=== PATIENT | female | born 2000 | race Caucasian/White ===

== ENCOUNTER 2021-08-28 10:16 | Outpatient (CLI) | payer OTHER, SELFPAY ==
--- NOTE | ~2021-08-28 | US_ITS ---
EXAMINATION: US OB <=14 wk fetus w TV DATE: 08/28/2021 11:06 INDICATION: with inconclusive viability TECHNIQUE: Real-time pelvic ultrasound utilizing both a transvaginal and transabdominal probe was pe rformed. The interpreting radiologist was not present for the study. COMPARISON: None. FINDINGS: The uterus measures 11.0 x 8.5 x 5.7 cm. There is an intrauterine gestational sac. A yolk sac and fe mary pole are identified. The crown rump length measures 3.3 cm, which correlates with an estimated ge stational age of 10 weeks and 1 days. heart motion is identified measuring 171 beats per minute (bpm) by M-mode Doppler. The right ovary measures 3.7 x 2.7 x 2.3 cm. The left ovary measures 3.3 x 2.3 x 2.1 cm. There are mu ltiple subcentimeter anechoic follicles at both the left and right ovaries with larger 1.9 x 1.3 cm t hick-walled centrally hypoechoic likely corpus luteum cyst in the left ovary. Vascular flow is identi fied in both ovaries on color Doppler. There is no free fluid in the pelvis. IMPRESSION: 1. Single living fetus with heart rate of 173 bpm. 2. Gestational age by ultrasound of 10 weeks 1 day(s) +/- 6 day(s) with ultrasound estimated date of delivery ([facility]) of 03/25/2022. Reviewed, dictated and finalized at location A. [facility] CUTTER IMPRESSION: 1. Single living fetus with heart rate of 173 bpm. 2. Gestational age by ultrasound of 10 weeks 1 day(s) +/- 6 day(s) with ultras ound estimated date of delivery ([facility]) of 03/25/2022.
== END 2021-08-28 10:17 | disposition home or self-care (01) ==
LOC: ANHIMG 10:20
PROVIDERS: PCP Family Medicine; Visit Provider Student in an Organized Health Care Education/Training Program
DX: O36.80X0 Pregnancy with inconclusive fetal viability, not applicable or unspecified (principal); Z3A.10 10 weeks gestation of pregnancy
CPT/HCPCS: 76801; 76817

== ENCOUNTER 2021-09-26 11:08 | Outpatient (CLI) | payer OTHER, SELFPAY ==
[2021-09-26 11:46] LABS: Basophils Percent Auto 0.3 % (0.2-1.2); Eosinophils Absolute Auto 0.1 K/mm3 (0-0.3); Eosinophils Percent Auto 0.6 % (0-4.4); Hematocrit 40.6 % (37.0-47.0); Hemoglobin 13.5 g/dL (12.0-15.0); Immature Granulocyte Absolute 0.04 K/mm3 (0.00-0.031); Immature Granulocyte Percent A 0.4 % (0-0.5); Lymphocytes Absolute Auto 1.68 K/mm3 (0.9-3.2); Lymphocytes Percent Auto 17.9 % (18.3-44.2); Mean Corpuscular HGB Conc 33.3 g/dl (32-36); Mean Corpuscular Hemoglobin 29.2 pg (26-34); Mean Corpuscular Volume 87.7 fl (80-100); Mean Platelet Volume 12.2 fl (7.4-10.4); Monocytes Absolute Auto 0.5 K/mm3 (0.1-0.6); Monocytes Percent Auto 5.3 % (2.6-8.5); Neutrophils Absolute Auto 7.1 K/mm3 (1.3-6.7); Neutrophils Percent Auto 75.5 % (45.5-73.1); Platelet Count Result 166 k/mm3 (150-375); Red Blood Count 4.63 M/mm3 (4.2-5.4); Red Cell Distribution Width 13.3 % (11.5-14.5); White Blood Count 9.4 K/mm3 (4.5-10.0)
[2021-09-26 11:50] LABS: Add Urine Microscopic? NO; Appearance Urine Clear (Clear); Bilirubin Urine Negative (Negative); Blood Urine Negative (Negative); Color Urine Yellow (Yellow); Glucose Urine UA Negative (Negative); Ketones Urine Negative (Negative); Leukocyte Esterase Ur Negative LEU/UL (NEGATIVE); Nitrate Urine Negative (Negative); Protein Urine Negative (Negative); Specific Grav Ur 1.017 (1.001-1.035); Urobilinogen Urine Negative mg/dL (<2.0)
[2021-09-26 12:17] LABS: Vitamin D 25 Hydroxy 34.1 ng/mL
[2021-09-26 12:36] LABS: Hepatitis B Surface Antigen Negative (Negative)
[2021-09-26 12:40] LABS: HIV 1/2 Ab P24 Ag Result Negative (Negative)
[2021-09-26 12:49] LABS: Hepatitis C Virus Antibody Negative (Negative)
[2021-09-27 14:20] LABS: Rapid Plasma Reagin Non-Reactive (NonReactive)
[2021-10-10 18:46] LABS: CF Result NEGATIVE (NEGATIVE)
== END 2021-09-26 11:09 | disposition home or self-care (01) ==
LOC: ANHLAB 11:10
PROVIDERS: PCP Family Medicine; Visit Provider Student in an Organized Health Care Education/Training Program
DX: Z34.02 Encounter for supervision of normal first pregnancy, second trimester (principal); Z3A.15 15 weeks gestation of pregnancy
CPT/HCPCS: 36415; 81003; 81220; 82306; 85025; 86592; 86703; 86762; 86787; 86803; 86900; 86901; 87077; 87086; 87088; 87340; G0432

== ENCOUNTER 2021-10-22 10:22 | Outpatient (CLI) | payer OTHER, SELFPAY ==
[2021-10-22 11:37] LABS: Thyroid Stimulating Hormone 0.811 uIU/mL (0.465-4.680)
[2021-10-27 00:22] LABS: Hemoglobin 12.5 g/dL (11.7-15.5); MCH 29.4 pg (27.0-33.0); MCV 89.4 fL (80.0-100.0); RDW 14.6 % (11.0-15.0); Red Blood Cell Count 4.25 Mill/uL (3.80-5.10)
== END 2021-10-22 10:23 | disposition home or self-care (01) ==
LOC: ANHLAB 10:26
PROVIDERS: PCP Family Medicine; Visit Provider Student in an Organized Health Care Education/Training Program
DX: Z34.01 Encounter for supervision of normal first pregnancy, first trimester (principal); Z3A.10 10 weeks gestation of pregnancy
CPT/HCPCS: 36415; 83021; 84443; 86850

== ENCOUNTER → 2022-01-06 12:06 | Outpatient (CLI) | payer SELFPAY ==
--- NOTE | ~2022-01-06 | US_ITS ---
EXAMINATION: US OB /maternal detail EXAM DATE: 01/06/2022 12:46 INDICATION: Anatomy scan. 2nd trimester. TECHNIQUE: Pelvic obstetrical transabdominal sonogram was performed by a technologist. There are mu ltiple grayscale and Doppler images available for interpretation. Comparison is made to prior examina tion from 08/28/2021. FINDINGS: There is a single fetus identified in breech presentation with a heart rate of 138 beats pe r minute. The placenta is located in the posterior position. There is no sonographic evidence of ret roplacental hemorrhage identified. The amniotic fluid index is 10.3 centimeters, which is normal. The 5th -- 95th percentile range is 9.4-22.8 cm. Placental margin to internal cervical os distance is 5. 8 cm. BIOMETRIC DATA: Biparietal diameter (BPD): 7.0 cm ----------------> 28 weeks 0 days. Head circumference (HC): 26.3 cm ----------------> 28 weeks 4 days. Abdominal circumference (AC): 24.5 cm ----------> 28 weeks 5 days. Femur length (FL): 5.1 cm --------------------------> 27 weeks 3 days. These measurements are concordant. HC/AC ratio is 1.07 (The 5th -- 95th percentile range is 1.02-1.21. Estimated weight is 1200 g +/- 180 g. This is the 19th percentile when the currently reported clinical gestation age 28 weeks 6 days, clinical estimated date of delivery ([facility]) 03/25 is used. F etal estimated gestational age based on measurements from this exam is 28 weeks 1 day, with an estima maria t date of delivery ([facility]) 03/30. ANATOMIC SURVEY: The following anatomy is identified and is sonographically normal in appearance: Cerebral ventricles Cavum septum pellucidum Cerebellum Cisterna magna CTL-spine Four-chamber heart Diaphragm Stomach Kidneys Bladder Three-vessel cord Cord insertion Extremities Nose/lips IMPRESSION: 1. Single fetus in breech presentation with heart rate 138 beats per minute. 2. Estimated weight of 1200 grams, 19th percentile using the currently reported clinical gesta tion age of 28 weeks 6 days, [facility](OPE) 03/25. 3. Normal anatomic survey. Reviewed, dictated and finalized at location A. IMPRESSION: 1. Single fetus in breech presentation with heart rate 138 beats per minute. 2. Estimated weight of 1200 grams, 19th percentile using the currently r eported clinical gestation age of 28 weeks 6 days, [facility](OPE) 03/25. 3. Normal anatomic survey.
== END ==
PROVIDERS: Visit Provider Student in an Organized Health Care Education/Training Program
DX: Z36.9 Encounter for antenatal screening, unspecified (principal); Z3A.28 28 weeks gestation of pregnancy
CPT/HCPCS: 76805

== ENCOUNTER 2022-01-15 14:46 | Outpatient (CLI) | payer SELFPAY ==
[2022-01-15 16:55] LABS: Basophils Absolute Auto 0.1 K/mm3 (0.0-0.1); Basophils Percent Auto 0.4 % (0.2-1.2); Eosinophils Absolute Auto 0.1 K/mm3 (0-0.3); Eosinophils Percent Auto 0.7 % (0-4.4); Hemoglobin 12.2 g/dL (12.0-15.0); Immature Granulocyte Percent A 1.5 % (0-0.5); Lymphocytes Absolute Auto 1.76 K/mm3 (0.9-3.2); Lymphocytes Percent Auto 12.8 % (18.3-44.2); Mean Corpuscular HGB Conc 32.1 g/dl (32-36); Mean Corpuscular Hemoglobin 29.3 pg (26-34); Mean Corpuscular Volume 91.3 fl (80-100); Mean Platelet Volume 11.6 fl (7.4-10.4); Monocytes Percent Auto 6.9 % (2.6-8.5); Neutrophils Absolute Auto 10.7 K/mm3 (1.3-6.7); Neutrophils Percent Auto 77.7 % (45.5-73.1); Platelet Count Result 209 k/mm3 (150-375); Red Blood Count 4.16 M/mm3 (4.2-5.4); Red Cell Distribution Width 12.6 % (11.5-14.5); White Blood Count 13.8 K/mm3 (4.5-10.0)
[2022-01-15 16:56] LABS: Glucose 1 Hour PP 50gm Dose 78 mg/dL
== END 2022-01-15 14:47 | disposition home or self-care (01) ==
PROVIDERS: Visit Provider Student in an Organized Health Care Education/Training Program
DX: Z34.02 Encounter for supervision of normal first pregnancy, second trimester (principal)
CPT/HCPCS: 36415; 82947; 85025